=== PATIENT | female | born 1985 | race Two or more races ===

== ENCOUNTER 2022-03-16 18:37 | Inpatient (IN) | payer OTHER ==
[~2022-03-16] VITALS: Ht 167.6 cm; Wt 68.0 kg
--- NOTE | 2022-03-16 18:50 | NUR ---
DR GREENE AT BEDSIDE FOR EVAL
--- NOTE | 2022-03-16 18:57 | NUR ---
IV LINE ESTABLISHED ON LAC #20, BLOOD DRAWN AND COLLECTED BY PHLEB AT BEDSIDE
[2022-03-16] MEDS ORDERED: IV NS 0.9% 1,000 ML BAG IV ONE (19:00)
[2022-03-16] MEDS ORDERED: ONDANSETRON HCL/PF 4 MG/2 ML VIAL IV ONE (19:00)
[2022-03-16] MEDS ORDERED: MORPHINE SULFATE INJ 2 MG/ML DISP.SYRIN IV ONE (19:00)
[2022-03-16] MEDS ORDERED: MORPHINE SULFATE INJ 4 MG/ML DISP.SYRIN ONE (19:01)
[2022-03-16] MEDS ORDERED: ONDANSETRON HCL/PF 4 MG/2 ML VIAL ONE (19:01)
--- NOTE | 2022-03-16 19:15 | NUR ---
PT UNABLE TO PROVIDE URINE AT THIS TIME, STATES "I CAN'T RIGHT NOW, I'M IN PAIN". WILL TRY AGAIN LATER.
[2022-03-16 19:54] LABS: CALCIUM, SERUM 8.6 mg/dL (8.5-10.1); CREATININE 0.8 mg/dL (0.6-1.3); POTASSIUM 3.5 mmol/L (3.5-5.1)
[2022-03-16 20:00] LABS: BILIRUBIN,DIRECT 0.2 mg/dL (0.0-0.2); BILIRUBIN,TOTAL 1.1 mg/dL (0.2-1.0); TOTAL PROTEIN, SERUM 7.1 g/dL (6.4-8.2)
[2022-03-16 20:13] LABS: BASOPHILS % (AUTO) 0.4 % (0.0-2.0); EOSINOPHILS % (AUTO) 7.4 % (0.0-6.0); HEMATOCRIT 41 % (33-45); HEMOGLOBIN 13.9 g/dL (11.5-14.8); LYMPHOCYTES # (AUTO) 2.1 K/uL (0.8-4.8); LYMPHOCYTES % (AUTO) 19.5 % (20.0-44.0); MEAN CORPUSCULAR HGB CONC 34 g/dl (31.0-36.0); MEAN CORPUSCULAR VOLUME 88 fL (82-100); MONOCYTES # (AUTO) 0.5 K/uL (0.1-1.30); MONOCYTES % (AUTO) 4.6 % (2.0-12.0); NEUTROPHILS # (AUTO) 7.3 K/uL (1.8-8.9); NEUTROPHILS % (AUTO) 68.1 % (43.0-81.0); PLATELET COUNT (AUTO) 303 K/uL (150-450); RED BLOOD CELL COUNT(AUTO) 4.68 MIL/uL (4.0-5.2); WHITE BLOOD COUNT (AUTO) 10.7 K/uL (4.3-11.0)
--- NOTE | 2022-03-16 20:20 | NUR ---
pt taken to ct
[2022-03-16 21:06] LABS: BILIRUBIN,URINE NEGATIVE (NEGATIVE); COLOR,URINE YELLOW (YELLOW); LEUKOCYTE ESTERASE ,URINE NEGATIVE (NEGATIVE); NITRITE, URINE NEGATIVE (NEGATIVE); PROTEIN,URINE NEGATIVE (NEGATIVE); UGLUCOSE NEGATIVE (NEGATIVE); UROBILINOGEN,URINE 0.2 EU/dL (0.2)
[2022-03-16 21:20] LABS: BACTERIA,URINE None seen /HPF (None Seen); URINE AMORPHOUS PHOSPHATES Few /HPF (None Seen); WBC,URINE 0-2 /HPF (0-3)
--- NOTE | 2022-03-16 21:29 | NUR ---
covid swab collected sent to lab
[2022-03-16] MEDS ORDERED: KETOROLAC TROMETHAMINE INJ 30 MG/ML VIAL IV ONE (21:30)
--- NOTE | 2022-03-16 22:01 | NUR ---
REPORT GIVEN TO FRANCIS MORELAND, [facility] FAXED [phone]
--- NOTE | 2022-03-17 01:10 | NUR ---
report given to melissa black
--- NOTE | 2022-03-17 01:43 | NUR ---
PT TRANSFERRED TO [facility] 312 VIA ACLS PROTOCOL. VSS. ALL BELONGINGS WITH PT
[2022-03-17] MEDS ORDERED: ZOLPIDEM TARTRATE 5 MG TABLET PO PRN (02:00)
[2022-03-17] MEDS ORDERED: MORPHINE SULFATE INJ 2 MG/ML DISP.SYRIN IM PRN (02:00)
[2022-03-17] MEDS ORDERED: IV D5/ 0.9% NACL 1,000 ML IV PRN (02:00)
[2022-03-17] MEDS ORDERED: ONDANSETRON HCL/PF 4 MG/2 ML VIAL IV PRN (02:00)
[2022-03-17] MEDS ORDERED: HYDROCODONE/APAP 5/325MG TABLET PO PRN (02:00)
[2022-03-17] MEDS ORDERED: ACETAMINOPHEN 650 MG/20.3 ML UDC NG PRN (02:00)
--- NOTE | 2022-03-17 02:06 | NUR ---
RN NOTE PT A/O X4 ENGLISH FEMALE LUXEMBOURGER SPEAKING ABLE TO MAKE NEEDS KNOWN. PT VERY SLEEPY AT THIS TIME. NO REPORTS OF PAIN AT THIS TIME. PT NOTED WITH IV ACCESS ON THE LAC 20G RUINING D5 NS @100 ML/HR TOLERATING WELL. PT NOTED WITH STEADY GAIT. PT REFUSED SKIN ASSESSMENT AT THIS TIME. " IM SO TIRED I JUST WANT TO REST" PT ORIENTED TO UNIT AND ROOM CALL LIGHT WITHIN REACH. TABLE WITHIN REACH. PT TO REMAIN NPO AT THIS TIME. RECEIVED T/O ORDERS FROM DR URIOSTEGUI CARRIED OUT.
--- NOTE | 2022-03-17 05:54 | NUR ---
RN NOTE PT WOKE UP VERY UPSET. COMPLAINING OF NOT RECEIVING ENOUGH IV FLUIDS EXPLAINED TO PT THAT THE FLUIDS RUN @100ML/HR PER DOCTORS ORDER, IT IS NOT A BOLUS. PT STATED" THAT IS UNACCEPTABLE!" TRIED TO EXPLAIN TO PT FURTHER SHE IS TO UPSET WILL COME BACK ONCE SHE IS MORE WILLING TO HAVE A CONVERSATION.
[2022-03-17] MEDS ORDERED: MORPHINE SULFATE INJ 2 MG/ML DISP.SYRIN IV PRN (06:00)
[2022-03-17 06:23] LABS: BASOPHILS % (AUTO) 0.4 % (0.0-2.0); EOSINOPHILS % (AUTO) 14.5 % (0.0-6.0); HEMATOCRIT 37 % (33-45); HEMOGLOBIN 12.5 g/dL (11.5-14.8); LYMPHOCYTES # (AUTO) 2.6 K/uL (0.8-4.8); LYMPHOCYTES % (AUTO) 31.7 % (20.0-44.0); MEAN CORPUSCULAR HGB CONC 34 g/dl (31.0-36.0); MEAN CORPUSCULAR VOLUME 88 fL (82-100); MONOCYTES # (AUTO) 0.4 K/uL (0.1-1.30); MONOCYTES % (AUTO) 5.3 % (2.0-12.0); NEUTROPHILS # (AUTO) 3.9 K/uL (1.8-8.9); NEUTROPHILS % (AUTO) 48.1 % (43.0-81.0); PLATELET COUNT (AUTO) 278 K/uL (150-450); RED BLOOD CELL COUNT(AUTO) 4.14 MIL/uL (4.0-5.2); WHITE BLOOD COUNT (AUTO) 8.1 K/uL (4.3-11.0)
--- NOTE | 2022-03-17 07:00 | NUR ---
MS RN OPENING NOTES: RECEIVED IN BED, AWAKE,A/OX 4 AND ABLE TO MAKE NEEDS KNOW. NO SOB OR CARDIAC DISTRESS NOTED,DENIES PAIN AT THIS TIME. MAINTAINED ON NPO. IV ACCESS ON LAC GAUGE 20, PATENT INTACT AND INFUSING D5NS 1L @ 100ML/HR. SAFETY MEASURES MAINTAINED: BED LOCKED AND IN LOWEST POSITION, SIDE RAILS UP X 2. CALL LIGHT AND BED SIDE TABLE IN EASY REACH FOR HELP. WILL MONITOR ACCORDINGLY.
[2022-03-17 07:10] LABS: ALBUMIN 3.2 g/dL (3.4-5.0); BILIRUBIN,TOTAL 1.1 mg/dL (0.2-1.0); CALCIUM, SERUM 7.9 mg/dL (8.5-10.1); CREATININE 0.8 mg/dL (0.6-1.3); MAGNESIUM 2.3 mg/dL (1.8-2.4); POTASSIUM 3.7 mmol/L (3.5-5.1); TOTAL PROTEIN, SERUM 5.9 g/dL (6.4-8.2)
[2022-03-17 08:00] VITALS: BP 105/70
[2022-03-17] MEDS ORDERED: NAPR-1009 PO (08:49)
[2022-03-17] MEDS ORDERED: DICY20TA11 PO (08:49)
[2022-03-17] MEDS ORDERED: PANTOPRAZOLE 40 MG VIAL IV SCH (09:00)
--- NOTE | 2022-03-17 09:55 | NUR ---
RN NOTES: @0930 CONSENT WAS SIGNED FOR EGD. @0937 PT WAS PICKED UP BY RN ANANYA AND TRANSPORTER, PT CHANGED CLOTHES, CELLPHONE LEFT IN NURSING STATION WITH NAME ON IT, CLOTHES LEFT IN HER ROOM SECURED AND LABELLED. PT LEFT THE UNIT STABLE VIA BED ACCOMPANIED BY RN AND TRANSPORTER.
--- NOTE | 2022-03-17 11:35 | NUR ---
RN NOTES: PATIENT WENT BACK FROM SURGERY ROOM, ACCOMPANIED BY RN BONIFACIO AND RN ANANYA VIA BED, PT AWAKE ALERT AND ORIENTED X4 AND ABLE TO VERBALIZED NEEDS. NO SOB OR CARDIAC DISTRESS NOTED.DENIES PAIN AT THIS TIME. VS BP 104/66, HR 63, O2 SAT 98%, RR 18, TEMP 97.8F. PT S/P EGD MAP (LOCAL ANESTHESIA) MD ORDERED RESUME DIET AND PREVIOUS MEDS. ORDERS NOTED AND CARRIED OUT. WILL MONITOR PT ACCORDINGLY, FAMILY AT BED SIDE. PT WAS OFFERED DRINKS AND CRACKER PT REFUSED.
[2022-03-17] MEDS ORDERED: SUCR1TAB31 PO (12:39)
[2022-03-17] MEDS ORDERED: PANT40TA2 PO (12:39)
--- NOTE | 2022-03-17 14:50 | NUR ---
TOOTH POLISHER NOTES: PATIENT DC HOME WITH SISTER, PT ALERT AND ORIENTED X 4 AND ABLE TO VERBALIZED NEEDS, NO SOB, DENIES PAIN AT THIS TIME. DISCHARGE PACKET AND INSTRUCTIONS GIVEN TO PT AND VERBALIZED UNDERSTANDING, PRESCRIPTION GIVEN TO PT. SKIN IS INTACT. ALL BELONGINGS TAKEN WITH THE PT. REMOVED IV ACCESS, IDENTIFICATION BAND CUT. PT LEFT THE UNIT STABLE AND AMBULATORY. REMIND PT TO FOLLOW UP WITH DR PARTIDA IN 2WEEKS TO DISCUSS BIOPSY RESULT. PT LEFT THE UNIT STABLE.
== END 2022-03-17 14:15 | disposition home or self-care (01) | DRG 241 ==
LOC: ER 18:41 → MED 03-17 00:41
PROVIDERS: ADMIT Internal Medicine; ATTEND Internal Medicine
PROC: 0DB68ZX Excision of Stomach, Via Natural or Artificial Opening Endoscopic, Diagnostic (ICD-10-PCS; principal; 2022-03-17)
DX: K25.9 Gastric ulcer, unspecified as acute or chronic, without hemorrhage or perforation (principal); Z20.822 Contact with and (suspected) exposure to COVID-19
CPT/HCPCS: 36415; 76856-TC; 80048-TC; 80053-TC; 80076-TC; 81001; 83690-TC; 83735-TC; 84703-TC; 85025-TC; 88305-TC; 88313-TC; 88342; C9113; C9803; G0378; J1885; J2270; J2405; J2704; J3490; J7030; J7042